=== PATIENT | female | born 1990 | race Caucasian/White ===

== ENCOUNTER 2018-08-27 14:15 | Emergency (ER) | payer OTHER ==
[2018-08-27] MEDS ORDERED: ONDANSETRON HCL IV 4 MG/2 ML VIAL IVP ONE ×2 (14:41→17:11)
[2018-08-27] MEDS ORDERED: 0.9 % SODIUM CHLORIDE 1,000 ML BAG IV ONE (14:59)
--- NOTE | 2018-08-27 14:59 | Emergency Department Record ---
History of Present Illness - General Chief Complaint: Abdominal Pain Stated Complaint: ABDOMINAL PAIN Time Seen by Provider: 08/27/18 14:47 Source: Patient Mode of Arrival: Ambulatory Limitations: No limitations - History of Present Illness Initial Comments: pt has ap since last night which has now moved to the rlq. she has IBS but states this feels different. walking and laying flat make it worse. curling in a ball makes it better. Complaint: Abdominal pain Onset/Timin -: Days(s) Location: RLQ Radiation: None Severity scale (1-10): 8 Quality: Sharp Consistency: Constant Improves With: Nothing Worsens With: Movement Associated Symptoms: Constipation, Diarrhea, Nausea, Vomiting - Related Data LMP (females 10-50): Last week Patient : No Home Medications Medication Instructions Recorded Confirmed Last Taken Alprazolam 0.5 mg PO DAILY 08/27/18 08/27/18 Unknown Dicyclomine HCl 20 mg PO ASDIR 08/27/18 08/27/18 Unknown Famotidine 20 mg PO DAILY 08/27/18 08/27/18 Unknown Previous Rx's Medication Instructions Recorded Ondansetron [Zofran Odt] 4 mg PO Q8H #7 tab.rapdis 08/27/18 Allergies Allergy/AdvReac Type Severity Reaction Status Date / Time No Known Drug Allergies Allergy Verified 06/24/16 07:14 Travel Screening - Travel/Exposure Within Last 30 Days Have you traveled within the last 30 days?: No - Travel/Exposure Within Last Year Have you traveled outside the [place] in the last year?: No Review of Systems Reviewed: No additional complaints except as noted below Constitutional: Reports: As per HPI. Denies: Chills, Fever, Malaise, Night sweats, Weakness, Weight change Eyes: Reports: As per HPI. Denies: Eye discharge, Eye pain, Photophobia, Vision change ENT: Reports: As per HPI. Denies: Congestion, Dental pain, Ear pain, Epistaxis , Hearing loss, Throat pain Respiratory: Reports: As per HPI. Denies: Cough, Dyspnea, Hemoptysis, Stridor, Wheezes Cardiovascular: Reports: As per HPI. Denies: Arrhythmia, Chest pain, Dyspnea on exertion, Edema, Murmurs, Orthopnea, Palpitations, Paroxysmal nocturnal dyspnea, Rheumatic Fever, Syncope Endocrine: Reports: As per HPI. Denies: Fatigue, Heat or cold intolerance, Polydipsia, Polyuria Gastrointestinal: Reports: As per HPI, Abdominal pain, Constipation, Diarrhea, Nausea, Vomiting. Denies: Hematemesis, Hematochezia, Melena Genitourinary: Reports: As per HPI. Denies: Abnormal menses, Discharge, Dyspareunia, Dysuria, Frequency, Hematuria, Incontinence, Retention, Urgency Musculoskeletal: Reports: As per HPI. Denies: Arthralgia, Back pain, Gout, Joint swelling, Myalgia, Neck pain Skin: Reports: As per HPI. Denies: Bruising, Change in color, Change in hair/ nails, Lesions, Pruritus, Rash Neurological: Reports: As per HPI. Denies: Abnormal gait, Confusion, Headache, Numbness, Paresthesias, Seizure, Tingling, Tremors, Vertigo, Weakness Psychiatric: Reports: As per HPI. Denies: Anxiety, Auditory hallucinations, Depression, Homicidal thoughts, Suicidal thoughts, Visual hallucinations Hematological/Lymphatic: Reports: As per HPI. Denies: Anemia, Blood Clots, Easy bleeding, Easy bruising, Swollen glands Past Medical History - SOCIAL HISTORY Smoking Status: Light tobacco smoker (<10/day) Alcohol Use: None Drug Use: None - RESPIRATORY Hx Respiratory Disorders: No - CARDIOVASCULAR Hx Cardio Disorders: No - NEURO Hx Neuro Disorders: No - GI Hx GI Disorders: No - Hx Genitourinary Disorders: No - ENDOCRINE Hx Endocrine Disorders: No - MUSCULOSKELETAL Hx Musculoskeletal Disorders: No - PSYCH Hx Psych Problems: No - HEMATOLOGY/ONCOLOGY Hx Hematology/Oncology Disorders: No Family Medical History Any Significant Family History?: No Physical Exam - General General Appearance: Alert, Oriented x3, Cooperative, Mild distress - Head Head exam: Normal inspection - Eye Eye exam: Normal appearance, PERRL, EOMI Pupils: Normal accommodation - ENT ENT exam: Normal exam, Mucous membranes moist, Normal external ear exam, Normal orophraynx Ear exam: Normal external inspection. negative: External canal tenderness Nasal Exam: Normal inspection. negative: Discharge, Sinus tenderness Mouth exam: Normal external inspection, Tongue normal Teeth exam: Normal inspection. negative: Dental caries Throat exam: Normal inspection. negative: Tonsillar erythema, Tonsillar exudate - Neck Neck exam: Normal inspection, Full ROM. negative: Tenderness - Respiratory Respiratory exam: Normal lung sounds bilaterally. negative: Respiratory distress - Cardiovascular Cardiovascular Exam: Normal rhythm, Normal heart sounds, Tachycardia - GI/Abdominal GI/Abdominal exam: Soft, Normal bowel sounds, Tenderness (rlq) - Rectal Rectal exam: Deferred - exam: Deferred - Extremities Extremities exam: Normal inspection, Full ROM, Normal capillary refill. negative: Tenderness - Back Back exam: Reports: Normal inspection, Full ROM. Denies: Muscle spasm, Rash noted, Tenderness - Neurological Neurological exam: Alert, CN II-XII intact, Normal gait, Oriented X3 - Psychiatric Psychiatric exam: Normal affect, Normal mood - Skin Skin exam: Dry, Intact, Normal color, Warm Course Vital Signs 08/27/18 14:30 Temperature 98.2 F Pulse Rate 108 H Respiratory 18 Rate Blood Pressure 110/68 Pulse Ox 97 - Reevaluation(s) Reevaluation #1: 08/27/18 18:14 ct neg. pt feels much better Medical Decision Making - Lab Data Result diagrams: 08/27/18 14:45 08/27/18 14:45 Disposition Disposition: Discharge Clinical Impression: Abdominal pain Qualifiers: Abdominal location: right lower quadrant Qualified Code(s): R10.31 - Right lower quadrant pain Vomiting Qualifiers: Vomiting type: unspecified Vomiting Intractability: non-intractable Nausea presence: with nausea Qualified Code(s): R11.2 - Nausea with vomiting, unspecified Disposition: Home, Self-Care Condition: (1) Good Instructions: Abdominal Pain (ED), Acute Nausea and Vomiting (ED) Additional Instructions: follow up with family doctor. return sooner if worse. push fluids Prescriptions: Ondansetron [Zofran Odt] 4 mg PO Q8H #7 tab.rapdis Forms: Patient Portal Access Quality - Quality Measures Quality Measures: N/A - Blood Pressure Screening Does Patient Have Any of the Following: No Blood Pressure Classification: Normal BP Reading Systolic Measurement: 110 Diastolic Measurement: 68 Screening for High Blood Pressure: < Normal BP, F/U Not Required > [[id number]]
[2018-08-27 15:20] LABS: HEMATOCRIT 41.7 % (35.0-47.0); HEMOGLOBIN 14.2 gm/dl (11.6-16.0); MEAN CELL VOLUME 91.4 fl (81-97); MEAN CORPUSCULAR HEMOGLOBIN 31.1 pg (27-33); MEAN CORPUSCULAR HGB CONC 34.1 g/dl (32-36); MEAN PLATELET VOLUME 10.3 fl (7.4-10.4); PLATELET COUNT 242 K/uL (130-400); RED BLOOD COUNT 4.56 M/uL (3.80-5.40); RED CELL DISTRIBUTION WIDTH 12.2 % (11.5-14.5); WHITE BLOOD COUNT W/O DIFF 8.9 K/uL (4.2-12.2)
[2018-08-27 15:28] LABS: URINE APPEARANCE CLEAR; URINE BILIRUBIN NEGATIVE (NEGATIVE); URINE BLOOD SMALL (NEGATIVE); URINE COLOR YELLOW; URINE GLUCOSE (UA) NEGATIVE (NEGATIVE); URINE KETONE 40 mg/dL (NEGATIVE); URINE LEUKOCYTE ESTERASE NEGATIVE (NEGATIVE); URINE NITRITE NEGATIVE (NEGATIVE); URINE PROTEIN NEGATIVE (NEGATIVE); URINE UROBILINOGEN 0.2 E.U./dL (0.20 - 1.00)
[2018-08-27 15:32] LABS: BLOOD UREA NITROGEN 10 mg/dL (6-20)
[2018-08-27 15:32] LABS: HCG,QUALITATIVE URINE NEGATIVE (NEGATIVE)
[2018-08-27 15:33] LABS: CREATININE 0.6 mg/dL (0.5-0.9); EST GLOMERULAR FILTRATION RATE > 60 mL/min; TOTAL PROTEIN 7.3 g/dL (6.6-8.7)
[2018-08-27 15:35] LABS: GLUCOSE,RANDOM 88 mg/dL (74-109)
[2018-08-27 15:38] LABS: ALB/GLOB RATIO 1.8 (1.1-1.8); ALBUMIN 4.7 g/dL (4.0-5.0); ALKALINE PHOSPHATASE 45 U/L (35-104); ALT/SGPT 9 U/L (<33); AST/SGOT 17 U/L (10.0-35.0); LIPASE 18 U/L (13-60)
[2018-08-27 15:42] LABS: URINE BACTERIA FEW; URINE WBC 0 - 2 (0-2/hpf)
[2018-08-27] MEDS ORDERED: KETOROLAC 30 MG/ML VIAL IVP ONE (16:55)
--- NOTE | 2018-08-28 12:54 | CT SCAN REPORT ---
EXAM: CT OF THE ABDOMEN AND PELVIS WITHOUT IV CONTRAST HISTORY: NAUSEA, ABDOMINAL PAIN. TECHNIQUE: Helical CT scan of the abdomen and pelvis was obtained without intravenous or oral contrast. Comparison: None. FINDINGS: Suboptimal evaluation of the solid organs without intravenous contrast. The lung bases are clear. The liver has normal size. The spleen has normal size. No inflammatory changes in the pancreas. No renal calculi or hydronephrosis. The bowel has normal caliber. The appendix is normal. An intrauterine device is present. No pelvic masses. No ascites. No adenopathy. The bony structures are unremarkable. IMPRESSION: 1. NO ACUTE ABNORMALITIES ARE IDENTIFIED IN THE ABDOMEN AND PELVIS. 2. NORMAL APPENDIX. JOB NUMBER: [id number] [facility]
== END 2018-08-27 18:28 | disposition home or self-care (01) ==
LOC: ER 14:15
DX: R10.31 Right lower quadrant pain (principal); R11.2 Nausea with vomiting, unspecified; R19.7 Diarrhea, unspecified; F17.210 Nicotine dependence, cigarettes, uncomplicated
CPT/HCPCS: 99284 ×2; 96376; 96374; 96375; 96361; 83690; 80053; 81001; 81025; 85027; 74176; J1885; J2405; J7030